=== PATIENT | male | born 1970 | race Caucasian/White ===

== ENCOUNTER 2018-11-18 14:56 | Emergency (ER) | payer OTHER ==
[~2018-11-18] VITALS: Ht 177.8 cm; Wt 66.2 kg
[~2018-11-18 14:56] MED LIST: DOCU-144 PO; IBUP-1542 PO; ONDA4TAB13 PO; OXYC-281 PO; POLY17PO6 PO
[2018-11-18 15:32] VITALS: Ht 177.8 cm; Wt 66.2 kg
[2018-11-18 18:42] VITALS: BP 128/77; PULSE 79; RESP 18
== END 2018-11-18 18:43 | disposition home or self-care (01) ==
LOC: FTE 14:56
DX: R07.89 Other chest pain (principal)
CPT/HCPCS: 71045; 80053; 81001; 81003; 84484; 85025; 93005